=== PATIENT | female | born 1950 | race Caucasian/White ===

== ENCOUNTER 2019-01-06 05:55 | Inpatient (IN) ==
--- NOTE | 2018-12-12 14:59 | Anesthesiology Consultation ---
Date of Service December 12, 2018 Assessment & Plan (1) Encounter for pre-operative examination: PATIENT INITIALLY SCHEDULED WITH DR. FISHER -- SURGERY CANCELED DUE TO SURGEON CONFLICT. PATIENT SEEN AT [facility] 11/07; PHYSICAL EXAM FINDINGS REPORTED ARE FROM THAT VISIT. PCP Clearance 11/29/18 = " echocardiogram showed normal ejection fraction. Minimal aortic stenosis. No other significant findings. Patient is medically cleared for upcoming surgery." Chart Review Chart Review: Acceptable Risk for Surgery and Patient seen in Pre Admission Testing History Surgery Operation Date: 01/06/19 12:45 Proposed Procedures p Bilateral Total Knee Arthroplasty - Orestes Parra DO Height/Weight Height: 5 ft 5 in Weight: 83.915 kg Allergies Allergy/AdvReac Type Severity Reaction Status Date / Time Sulfa (Sulfonamide Allergy Rash Verified 12/11/18 14:27 Antibiotics) Medications Home Medications Medication Instructions Recorded Confirmed Last Taken acetaminophen [Tylenol] 325 mg PO Q6H PRN 11/05/18 12/11/18 Unknown levothyroxine [Synthroid] 100 mcg PO QAM 11/05/18 12/11/18 Unknown tramadol 50 mg PO Q6H PRN 12/11/18 12/11/18 Unknown Past Medical History Medical History Hx of pneumothorax D/T ACCIDENT 2017 Hypothyroidism Osteoarthritis Exercise / Class Metabolic Activity II 4-5 Yardwork/Stairs/Walk up hill (DENIES CP OR SOB WITH STAIRS) Past Family History Family History Brother Family history of diabetes mellitus Past Surgical History Surgical History History of D&C multiple History of appendectomy History of arthroscopy of left knee History of arthroscopy of right knee History of colonoscopy History of placement of chest tube History of surgery on wrist RT; hardware present History of tonsillectomy History of total abdominal hysterectomy and bilateral salpingo-oophorectomy Past Anesthesia History No Hx of Anesthesia Complications and No Family Hx of Anesthesia Complications Single episode of severe paranoia immediately post op, no subsequent issues. History of PONV No Hx of PONV and Hx of Motion Sickness (OCCASIONAL) Social History Smoking Status: Former smoker Do You Dip or Chew Tobacco: No Smoking End Date: 1992 Hx Alcohol Use: Yes Alcohol type: wine alcohol intake frequency: a few times a week Hx Substance Use: No substance use type: does not use Physical Exam Vital Signs Vital Signs BP: 144/69 P: 77bpm SPO2: 97% RA T: 98.4 F R: 18 ENMT Mouth: no dental restorations, no chipped teeth and no loose teeth Thyromental Distance: > or= 3.5 Finger Breadths (4) Mallampati Class: II Neck normal visual inspection; neck extension not limited Respiratory normal respiratory effort Auscultation: lungs clear to auscultation bilaterally Cardiovascular Rate/Rhythm: regular rate and regular rhythm Heart Sounds: + murmur (II-III/ JEFF, loudest at RSB) Vessels: + carotid bruit (likely radiation from murmur) Testing Laboratory Results 11/07/18 WBC: 6.12 H/H: 13.2/38.5 PLATELETS: 265 SODIUM: 140 POTASSIUM: 4.0 CHLORIDE: 108 CO2: 28 BUN: 21 CREATININE: 0.84 GLUCOSE: 132 A1C: 5.5% UA negative for bacteria Type and Screen: O negative, antibody negative PT: 10.3 INR: 1.0 PTT: 24.2 Electrocardiogram Date: 11/07/18 Findings: + NSR @ (70) NONSPECIFIC T WAVE ABNORMALITY. Chest X-Ray Date: 11/07/18 Findings: + NAD Echocardiogram Date: 11/27/18 EF: 60-65% Left ventricle is normal in size, wall thickness, wall motion and contractility. Right ventricle is normal in size and contractility. Degenerated trileaflet AV, trace AI. The mean gradient of 12 mmHg and the dimensionless index of 0.4 suggest mild . ADALI 1.7 cm. Normal RVSP. Small left to right shunt through PFO cannot be completely excluded.
--- NOTE | 2018-12-18 16:42 | History & Physical Report ---
Date of Service December 18, 2018 Date of Surgery: 01/06/19 Assessment & Plan (1) Bilateral primary osteoarthritis of knee: Risks and benefits of procedure discussed in detail today, patient would like to proceed with Bilateral total knee replacements at [facility] on 01-06-19. will obtain medical clearance from dr pearl prior to surgery as well as obtain PATs at [facility]. Will place on Xarelto x 1 month post op, f/u 2 weeks post op for routine post-operative care and x-ray, sooner if having any problems. will make arrangements for possible rehab placement at the time of discharge. At this point in time, has failed conservative measures and would like to proceed with surgical intervention. History of Present Illness Chief Complaint: bilateral knee pain Primary Care Provider: NO PCP Ms Guaman is a 68 year old female who is here for a follow up of bilateral knee, presents for pre-op evaluation prior to bilateral total knee replacements at [facility]. She presents with pain and instability on both sides. In addition, she presents with pain and crepitus and decreased ROM. She states that the symptoms have been chronic non-traumatic. The symptoms occur constantly with intermittent worsening. Currently the patient states that the symptoms are moderate-severe. The pain is described as aching and sharp. The patient is experiencing pain throughout the entire joint but greatest medial compartments both knees. She rates her current pain as 6/10. The symptoms are aggravated by daily activities, first steps while awake, walking and repetitive activities. Patient is taking Tramadol for pain. Patient has had cortisone injections in the past. she previously underwent Right knee arthroscopic partial medial meniscectomy and c hondroplasty medial femoral condyle and medial tibial plateau on 08/19/[address] Rodrigues. Allergies Allergy/AdvReac Type Severity Reaction Status Date / Time Sulfa (Sulfonamide Allergy Rash Verified 12/11/18 14:27 Antibiotics) Home Medications Home Medications Medication Instructions Recorded Confirmed Type acetaminophen [Tylenol] 325 mg PO Q6H PRN 11/05/18 12/11/18 History levothyroxine [Synthroid] 100 mcg PO QAM 11/05/18 12/11/18 History tramadol 50 mg PO Q6H PRN 12/11/18 12/11/18 History Past Med/Surg History Medical History Hx of pneumothorax D/T ACCIDENT 2017 Hypothyroidism Osteoarthritis Surgical History History of D&C multiple History of appendectomy History of arthroscopy of left knee History of arthroscopy of right knee History of colonoscopy History of placement of chest tube History of surgery on wrist RT; hardware present History of tonsillectomy History of total abdominal hysterectomy and bilateral salpingo-oophorectomy Family History Brother Family history of diabetes mellitus Social History Preferred Language: Macanese Communication Ability: Effective Beliefs That Will Affect Care: None Current Living Situation: Alone Feels Safe at Home: Yes Smoking Status: Former smoker Do You Dip or Chew Tobacco: No Smoking End Date: 1992 Second Hand Exposure: No Hx Alcohol Use: Yes Alcohol type: wine Hx Substance Use: No Review of Systems Review of Systems: All systems reviewed & are unremarkable except as noted in HPI & below Constitutional: no fever, no chills and no sweats Respiratory: no cough and no dyspnea Cardiovascular: no chest pain, no dyspnea and no orthopnea Gastrointestinal: no abdominal pain, no nausea and no vomiting Musculoskeletal: as per Subjective / HPI Physical Exam Physical Exam: Ht: 5ft 5 in Wt: 83.9kg BP: 140/82 Pulse: 82 Constitutional: WD/WN, vitals as above no acute distress Respiratory: normal respiratory effort, lungs clear to auscultation no respiratory distress and does not use accessory muscles Cardiovascular: Rate/Rhythm: regular rate and regular rhythm Heart Sounds: + murmur (Grade II/ JEFF) Gastrointestinal (Abdomen): normal bowel sounds, soft, nontender, no hepatosplenomegaly Musculoskeletal: Bilateral knee Physical exam Overall patient has varus alignment bilaterally, there is no atrophy or ecchymosis noted, no erythema. she does have +2 suprapatellar effusion in both of her knees, she has tenderness to both medial and lateral joint lines to both of her knees, negative patellar apprehension, she does have crepitation noted to both knees with active ROM. bilateral knees stable to valgus and varus stress, apryl negative, posterior drawer negative. Range of motion right knee 0/3/110, left knee 0115. her lower extremities are neurovascularly intact, calf soft and non tender, DP pulse +2 bilaterally. Results & Data Diagnostic Findings Bilateral Knee X-ray: bilateral knee series confirm advanced degenerative changes to bilateral knees, greatest medial compartments and patellofemoral joints, showing joint space narrowing, osteophyte formation and subchondral sclerosis. no acute bony pathology noted. overall varus alignment bilaterally, no loose bodies, no acute bony pathology.
[2019-01-06] MEDS ORDERED: FAMOTIDINE 20 MG TAB PO SCH (06:00)
[2019-01-06] MEDS ORDERED: LR 500ML BOLUS, THEN 15ML/HR IV SCH (06:00)
[2019-01-06] MEDS ORDERED: ROPIVACAINE 0.5% HCL/PF 150 MG, BUPIVACAINE 0.5% MPF 30 ML, EPINEPHrine 30MG/30ML (OR U... INFIL SCH (06:00)
[2019-01-06] MEDS ORDERED: TRANEXAMIC ACID 1,000 MG **IV Pre-op IV SCH (06:00)
[2019-01-06] MEDS ORDERED: ACETAMINOPHEN 500 MG TAB PO SCH (06:00)
[2019-01-06] MEDS ORDERED: dexAMETHasone 4 MG TAB PO SCH (06:00)
[2019-01-06] MEDS ORDERED: GABAPENTIN 300 MG PO SCH (06:00)
[2019-01-06] MEDS ORDERED: CLINDAMYCIN 600 MG/54 ML BAG IV SCH (06:00)
[2019-01-06] MEDS ORDERED: METOCLOPRAMIDE HCL 10 MG TABLET PO SCH (06:00)
[2019-01-06] MEDS ORDERED: TRANEXAMIC ACID 1,000 MG **IV Intra-op IV SCH (06:30)
[2019-01-06] MEDS ORDERED: BUPIVACAINE 0.5 % 5 MG/1 ML PF 10ML VIAL ONE (06:33)
[2019-01-06] MEDS ORDERED: ROPIVACAINE 0.5% 5 MG/ML 30 ML VIAL ONE (06:33)
--- NOTE | 2019-01-06 07:00 | History & Physical Bridge Note ---
Date of Service January 06, 2019 History & Physical Bridge Note I have examined the patient, reviewed the History & Physical and in the interval since the performance of the History & Physical I have noted the following changes of clinical significance: no changes noted
[2019-01-06] MEDS ORDERED: LIDOCAINE HCL 2% 2 ML VIAL/AMP(20MG/ML) INFIL ONE (07:01)
[2019-01-06] MEDS ORDERED: PROPOFOL IV EMULSION 10 MG/ML 20 ML VIAL IV ONE (07:01)
[2019-01-06] MEDS ORDERED: fentaNYL citrate 100 MCG/2 ML VIAL ONE (07:01)
[2019-01-06] MEDS ORDERED: MIDAZOLAM HCL 1 MG/ML 2ML VIAL ONE ×2 (07:01)
[2019-01-06] MEDS ORDERED: ORTHO JOINT ANESTHETIC ONE (07:06)
[2019-01-06] MEDS ORDERED: BACITRACIN INJ 50,000 UNIT VIAL ONE (07:06)
[2019-01-06] MEDS ORDERED: ONDANSETRON INJ 2 MG/ML 2 ML VIAL IV PRN ×2 (07:18→12:06)
[2019-01-06] MEDS ORDERED: ATROPINE SULFATE 0.1 MG/ML 10ML SYR IV PRN (07:18)
[2019-01-06] MEDS ORDERED: fentaNYL citrate 100 MCG/2 ML VIAL IV PRN (07:18)
[2019-01-06] MEDS ORDERED: ePHEDrine sulfate 50 MG/ML AMP IV PRN (07:18)
[2019-01-06] MEDS ORDERED: ONDANSETRON INJ 2 MG/ML 2 ML VIAL ONE ×2 (08:37→09:20)
--- NOTE | 2019-01-06 10:24 | Operative Report ---
Post Operative Report Pre & Post Diagnosis Operation Date: 01/06/19 08:20 Pre-Op Diagnosis: BILATERAL KNEE OSTEOARTHRITIS Post-Op Diagnosis: BILATERAL KNEE OSTEOARTHRITIS Procedure Operation Date: 01/06/19 08:20 Actual Procedures p Bilateral Total Knee Arthroplasty(Bilateral) utilizing [employer] journey to non-block total knee arthroplasty right size 4 femur 4 tibia 10 polyethylene 32 oval patella left size 5 femur 5 tibia 9 polyethylene 32 oval patella- Orestes Parra DO Surgeon Orestes Parra DO Signal Timer Barber SOLIS Estimated Blood Loss 10 Findings Consistent with Post-Op Diagnosis Patient presents with bilateral severe end-stage rectum compartment degenerative disease with varus alignment subchondral sclerosis cystic changes marginal osteophytes eburnated bone on bilateral knees patient did not respond to conservative management there are large subchondral cystic changes on the left knee with a 1 x 2 cm cyst Specimens Bone and cartilage Drains Medium bore Hemovac Complications none Disposition Accompanied Patient To Recovery: No Disposition: Recovery Room Indications Patient presents as a 68-year-old female being treated for severe end-stage tric ompartmental degenerative joint disease no response to conservative management failed attempted conservative management physical therapy anti-inflammatories relative rest activity medication corticosteroid injections the above intraoperative findings were noted with lab results large subchondral cystic changes osteophytes eburnated bone patient presents for right total knee arthroplasty Description of Procedure After proper prepping and draping of the bilateral lower extremities, an anterior midline incision was made over the region of the extensor extensor mechanism of the left knee. After meticulous hemostasis was obtained and maintained in subcutaneous tissues a medial parapatellar incision was made The patella was subluxed lateralward the medial lateral gutter were cleaned from any hypertrophic synovitis and scar tissue of the distal femoral block was placed and the distal femoral osteotomy cut was made subsequently the chamfers anterior and posterior osteotomy cuts were made utilizing the 4-in-1 block the tibia was subsequently subluxed anteriorward medial and ateral meniscal remnants were excised in their entirety remnants of the anterior and posterior cruciate ligaments were excised in their entirety excellent exposure of the proximal tibia was obtained the tibial osteotomy guide was placed on the proximal tibial osteotomy cut was made once again the knee was irrigated with copious amounts of sterile saline solution the patella was subsequently everted lateralward thickened scar tissue around the patella was removed the patella was subsequently cut utilizing a freehand technique and was drilled prepared for final preparation and placement of patella socially flexion-extension gaps were checked and the equal and symmetric trials were placed to the appropriate femoral and tibial trials with poly-spacer being placed for equal flexion and extension gaps and full range of motion including extension to 0 and flexion to 140 the trial components after having been taken to recovery range of motion was subsequently removed meticulous hemostasis was obtained and maintained subsequently a knee block injection of joint cocktail including ropivacaine 0.5% 150 mg. Bupivacaine 0.5% epinephrine 1-200,030 mL's toradol 30 mg dexamethasone 4 mg ketamine 10 mg clonidine 100 micrograms normal saline solution 30 mg was infiltrated into the soft tissues of the posterior knee medial lateral gutters and periosteal synovium special attention was paid to protect neurovascular structures at all times subsequently trial components having been removed the knee was irrigated with sterile saline solution. debris was removed the proximal tibia was subsequently prepared and was made ready for the placement of the tibial component tibial component was also cemented and tamped into position the femoral component was subsequently placed and cemented in the position the patellar component was subsequently cemented in position because hemostasis once again obtained and maintained wound having been thoroughly irrigated with debridement and debridement lavage was performed as well as a medial parapatellar incision closed with #1 Vicryl in interrupted fashion subcutaneous was closed with #2 Vicryl skin was closed with skin clips Next, an anterior midline incision was made over the region of the extensor extensor mechanism of the right knee. After meticulous hemostasis was obtained and maintained in subcutaneous tissues a medial parapatellar incision was made The patella was subluxed lateralward the medial lateral gutter were cleaned from any hypertrophic synovitis and scar tissue of the distal femoral block was placed and the distal femoral osteotomy cut was made subsequently the chamfers anterior and posterior osteotomy cuts were made utilizing the 4-in-1 block the tibia was subsequently subluxed anteriorward medial and ateral meniscal remnants were excised in their entirety remnants of the anterior and posterior cruciate ligaments were excised in their entirety excellent exposure of the proximal tibia was obtained the tibial osteotomy guide was placed on the proximal tibial osteotomy cut was made once again the knee was irrigated with copious amounts of sterile saline solution the patella was subsequently everted lateralward thickened scar tissue around the patella was removed the patella was sub sequently cut utilizing a freehand technique and was drilled prepared for final preparation and placement of patella socially flexion-extension gaps were checked and the equal and symmetric trials were placed to the appropriate femoral and tibial trials with poly-spacer being placed for equal flexion and extension gaps and full range of motion including extension to 0 and flexion to 140 the trial components after having been taken to recovery range of motion was subsequently removed meticulous hemostasis was obtained and maintained subsequently a knee block injection of joint cocktail including ropivacaine 0.5% 150 mg. Bupivacaine 0.5% epinephrine 1-200,030 mL's toradol 30 mg dexamethasone 4 mg ketamine 10 mg clonidine 100 micrograms normal saline solution 30 mg was infiltrated into the soft tissues of the posterior knee medial lateral gutters and periosteal synovium special attention was paid to protect neurovascular structures at all times subsequently trial components having been removed the knee was irrigated with sterile saline solution. debris was removed the proximal tibia was subsequently prepared and was made ready for the placement of the tibial component tibial component was also cemented and tamped into position the femoral component was subsequently placed and cemented in the position the patellar component was subsequently cemented in position because hemostasis once again obtained and maintained wound having been thoroughly irrigated with debridement and debridement lavage was performed as well as a medial parapatellar incision closed with #1 Vicryl in interrupted fashion subcutaneous was closed with #2 Vicryl skin was closed with skin clips.. PA-C was necessary for prepping and drapping as well as wound closure of deep fascia Sub cutaneous tissue and skin and was necessary for the case. A sterile compressive dressings were placed, patient was taken to recovery in stable condition of report dictated by Fidel I attest to the content of the Intraoperative Record and any orders documented therein. Any exceptions are noted below. I attest to the content of the Intraoperative Record and any orders documented therein. Any exceptions are noted below.
[2019-01-06] MEDS ORDERED: POVIDONE-IODINE OP SOLN 30 ML BTL OP SCH (10:30)
--- NOTE | 2019-01-06 11:23 | XRay Report ---
XR knee RT 2V routine CLINICAL HISTORY: 68 years-old Female presenting with Surgical Post Op. TECHNIQUE: Frontal and crosstable lateral views the right knee were obtained. COMPARISON: None. FINDINGS: Post surgical changes of total right knee arthroplasty with patellar resurfacing. Expected intra-martha cular and soft tissue emphysema. A surgical drain is in place. No periprosthetic lucency or fracture. No malalignment. IMPRESSION: Expected postsurgical appearance status post total right knee arthroplasty with patellar resurfacing. Electronically signed by: Rodger Wiley M.D. 01/06/2019 11:22 AM
--- NOTE | 2019-01-06 11:25 | XRay Report ---
XR knee LT 2V routine CLINICAL HISTORY: 68 years-old Female presenting with Surgical Post Op. TECHNIQUE: Frontal and crosstable lateral views of the left knee were obtained. COMPARISON: None. FINDINGS: Postsurgical changes of total left knee arthroplasty with patellar resurfacing. Cement is noted along the medial aspect of the medial femoral condyle. Expected intra-articular and soft tissue emphysema. No periprosthetic lucency or fracture. No malalignment. IMPRESSION: Expected postsurgical appearance status post total left knee arthroplasty with patellar resurfacing. Electronically signed by: Rodger Wiley M.D. 01/06/2019 11:24 AM
[2019-01-06] MEDS ORDERED: SODIUM CHLORIDE 0.9% 1000ML 1,000 ML IV SCH (12:06)
[2019-01-06] MEDS ORDERED: MAGNESIUM HYDROXIDE SUSP 30 ML UDC PO PRN (12:06)
[2019-01-06] MEDS ORDERED: METOCLOPRAMIDE HCL INJ 5 MG/ML 2 ML VIAL IV PRN (12:06)
[2019-01-06] MEDS ORDERED: NALOXONE HCL 0.4 MG/1 ML VIAL/CARP IV PRN (12:06)
[2019-01-06] MEDS ORDERED: BISACODYL 10 MG SUPP PR PRN (12:06)
--- NOTE | 2019-01-06 12:13 | Anesthesiology Progress Note ---
Date of Service January 06, 2019 Anesthesia Post Procedure Vital Signs Vital Signs: Temp Pulse Resp BP Pulse Ox 01/06/19 11:30 57 L 19 148/75 H 96 01/06/19 11:20 97.5 F L 63 17 151/87 H 97 01/06/19 11:10 66 22 154/77 H 100 01/06/19 11:02 96.8 F L 70 17 152/66 H 100 01/06/19 06:27 98.2 F 65 16 175/89 H 100 Pain Intensity Bilateral Knee: Pain Intensity: 1 Transfer of Care Handoff Completed per policy Notes Mental Status: alert / awake / arousable and participated in evaluation Patient Amnestic to Procedure: Yes Nausea / Vomiting: adequately controlled Pain: adequately controlled Airway Patency, RR, SpO2: stable & adequate BP & HR: stable & adequate Hydration State: stable & adequate Neuraxial Anesthesia: was administered and sensory block is resolving Anesthetic Complications: no major complications apparent and Pt Satisfied with anesthetic care
[2019-01-06] MEDS: KETOROLAC TROMETHAMINE 15 MG/ML VIAL IV SCH ×2 (13:57→19:42)
[2019-01-06] MEDS: ACETAMINOPHEN 500 MG TAB PO SCH ×2 (13:57→22:12)
[2019-01-06] MEDS: OXYCODONE HCL IR 5 MG TAB (IMMEDIATE RELEASE) PO PRN ×2 (15:33→20:15)
[2019-01-06] MEDS: FERROUS GLUCONATE 324 MG TAB PO SCH (17:46)
[2019-01-06] MEDS: CEFAZOLIN 2000MG 2,000 MG/15 ML SYR IV SCH (19:42)
[2019-01-06] MEDS: DOCUSATE SODIUM 100 MG CAP PO SCH (20:11)
[2019-01-06] MEDS: SENNA 8.6 MG TAB PO SCH (20:12)
[2019-01-06] MEDS: HYDROmorphone INJ 0.5 MG/0.5 ML SYR IV PRN (22:44)
[2019-01-07] MEDS: OXYCODONE HCL IR 5 MG TAB (IMMEDIATE RELEASE) PO PRN ×4 (00:03→21:43)
[2019-01-07] MEDS: KETOROLAC TROMETHAMINE 15 MG/ML VIAL IV SCH ×4 (01:07→19:31)
[2019-01-07] MEDS: HYDROmorphone INJ 0.5 MG/0.5 ML SYR IV PRN ×5 (03:06→23:26)
[2019-01-07] MEDS: CEFAZOLIN 2000MG 2,000 MG/15 ML SYR IV SCH (03:52)
[2019-01-07] MEDS: ACETAMINOPHEN 500 MG TAB PO SCH ×3 (05:55→22:11)
[2019-01-07] MEDS: LEVOTHYROXINE SODIUM 100 MCG TABLET PO SCH (05:55)
[2019-01-07 06:09] LABS: Hemoglobin 8.8 g/dL (12.0-16.0); Mean Corpuscular Hgb Conc 33.8 g/dL (32-36); Mean Corpuscular Volume 87.8 fL (80-100); Mean Platelet Volume 8.9 fL (7.4-10.4); Platelet Count 191 K/uL (130-400); RDW Coefficient of Variation 12.3 % (11.5-14.5); RDW Standard Deviation 39.6 fL (36.4-46.3); Red Blood Count 2.96 M/uL (4.2-5.4); White Blood Count 11.04 K/uL (4.8-10.8)
[2019-01-07 06:39] LABS: BUN Creatinine Ratio 24.6 (10-20); Calcium 8.3 mg/dl (8.5-10.1); Creatinine Clr Calc Pharmacy 76.5 ml/min; Est GFR (African American) 93.3; Est GFR (Non-African American) 80.5
--- NOTE | 2019-01-07 07:19 | Anesthesiology Progress Note ---
Date of Service January 07, 2019 Anesthesia Post Procedure Vital Signs Vital Signs: Temp Pulse Pulse Resp BP Pulse Ox 01/07/19 03:02 36.7 C 64 16 110/64 94 01/06/19 23:04 36.4 C L 70 18 108/60 94 01/06/19 20:28 36.7 C 77 18 125/65 96 01/06/19 15:26 36.6 C 61 16 169/83 H 100 01/06/19 13:55 36.4 C L 70 16 151/80 H 100 01/06/19 12:45 36.4 C L 69 18 154/69 H 100 01/06/19 12:19 36.4 C L 63 18 161/78 H 98 01/06/19 11:45 36.5 C 63 16 159/69 H 97 01/06/19 11:30 57 L 19 148/75 H 96 01/06/19 11:20 36.4 C L 63 17 151/87 H 97 01/06/19 11:10 66 22 154/77 H 100 01/06/19 11:02 36 C L 70 17 152/66 H 100 Pain Intensity Bilateral Knee: Pain Intensity: 6 Notes Mental Status: alert / awake / arousable and participated in evaluation Nausea / Vomiting: adequately controlled Pain: adequately controlled Airway Patency, RR, SpO2: stable & adequate BP & HR: stable & adequate Hydration State: stable & adequate Neuraxial Anesthesia: sensory block resolved Anesthetic Complications: Pt Satisfied with anesthetic care
[2019-01-07] MEDS ORDERED: COUGH DROP (SUGAR FREE) LOZ 24 LOZ/1 BOX BUCCAL ONE (07:36)
--- NOTE | 2019-01-07 07:51 | Orthopedic Progress Note ---
Date of Service January 07, 2019 Assessment & Plan (1) Bilateral primary osteoarthritis of knee: Postop day 1 status post bilateral TKA. PT/OT protocols. Weightbearing as tolerated. DVT prophylaxis with rivaroxaban, SCDs, KIRSTIE hose. Pain management with acetaminophen, oxycodone, hydromorphone, Toradol. We will recheck her pain control later today. Depending on pain control ,she may need an extended release narcotic. DC planning-patient is requesting to go to an inpatient rehab facility. She is thinking [facility] Pt will be seen by Dr Parra today. (2) Acute blood loss anemia: Anemia due to surgical loss. Will recheck H&H tomorrow. Currently asymptomatic. Subjective Postop day 1 status post bilateral total knee arthroplasty. Patient is currently sitting up in bed and is awake and alert. Burning pain in her knees which she had last night which at one point became very painful. She states that when she gets up, is when she has most of her pain. She is asking when her next pain medication is due. She denies any shortness of breath, chest pain, lightheadedness. She denies any calf tenderness. Physical Exam Physical Exam: Bilateral knee dressings are clean, dry, and intact. Calves are soft nontender. Neurovascular is intact. Toes are mobile. Hemovac drainage was 175 cc from the right knee and 75 cc from the left knee from the previous shift. Results & Data Vital Signs (Past 12 Hours) Vital Signs Temp Pulse Resp BP Pulse Ox 01/07/19 03:02 36.7 C 64 16 110/64 94 01/06/19 23:04 36.4 C L 70 18 108/60 94 01/06/19 20:28 36.7 C 77 18 125/65 96 Laboratory Results Laboratory Results WBC 11.04 K/uL (4.8-10.8) H 01/07/19 05:49 RBC 2.96 M/uL (4.2-5.4) L 01/07/19 05:49 Hgb 8.8 g/dL (12.0-16.0) L 01/07/19 05:49 Hct 26.0 % (37-47) L 01/07/19 05:49 MCV 87.8 fL (80-100) 01/07/19 05:49 MCH 29.7 pg (25-34) 01/07/19 05:49 MCHC 33.8 g/dL (32-36) 01/07/19 05:49 RDW Std Deviation 39.6 fL (36.4-46.3) 01/07/19 05:49 RDW Coeff of Kimber 12.3 % (11.5-14.5) 01/07/19 05:49 Plt Count 191 K/uL (130-400) 01/07/19 05:49 MPV 8.9 fL (7.4-10.4) 01/07/19 05:49 Sodium 140 mmol/L (136-145) 01/07/19 05:49 Potassium 4.0 mmol/L (3.5-5.1) 01/07/19 05:49 Chloride 106 mmol/L (98-107) 01/07/19 05:49 Carbon Dioxide 29 mmol/L (21-32) 01/07/19 05:49 Anion Gap 5.0 (3-11) 01/07/19 05:49 BUN 19 mg/dl (7-18) H 01/07/19 05:49 Creatinine 0.77 mg/dl (0.6-1.2) 01/07/19 05:49 Est Cr Clr Drug Dosing 76.5 ml/min 01/07/19 05:49 Est GFR ( Amer) 93.3 01/07/19 05:49 Est GFR (Non-Af Amer) 80.5 01/07/19 05:49 BUN/Creatinine Ratio 24.6 (10-20) H 01/07/19 05:49 Glucose 123 mg/dl (70-99) H 01/07/19 05:49 Calcium 8.3 mg/dl (8.5-10.1) L 01/07/19 05:49 Blood Type O Negative 01/06/19 06:16 Antibody Screen NEGATIVE 01/06/19 06:16
[2019-01-07] MEDS ORDERED: COUGH DROP (SUGAR FREE) LOZ 24 LOZ/1 BOX BUCCAL PRN (08:23)
[2019-01-07] MEDS: RIVAROXABAN 10 MG TABLET PO SCH (08:53)
[2019-01-07] MEDS: DOCUSATE SODIUM 100 MG CAP PO SCH ×2 (08:53→19:59)
[2019-01-07] MEDS: MULTIVITAMIN TAB PO SCH (08:53)
[2019-01-07] MEDS: FERROUS GLUCONATE 324 MG TAB PO SCH ×2 (08:53→16:19)
[2019-01-07] MEDS: MoRPHine SULFATE CR 15 MG TABCR PO SCH (16:18)
[2019-01-07] MEDS: SENNA 8.6 MG TAB PO SCH (19:58)
[2019-01-08] MEDS: KETOROLAC TROMETHAMINE 15 MG/ML VIAL IV SCH ×2 (03:20→08:20)
[2019-01-08] MEDS: HYDROmorphone INJ 0.5 MG/0.5 ML SYR IV PRN (03:20)
[2019-01-08 05:52] LABS: Basophils # (auto) 0.02 K/uL (0-0.2); Basophils % (auto) 0.3 %; Eosinophils # (auto) 0.11 K/uL (0-0.5); Eosinophils % (auto) 1.8 %; Hematocrit (blood only) 22.1 % (37-47); Hemoglobin 7.5 g/dL (12.0-16.0); Immature Granulocytes # (auto) 0.02 K/uL (0.00-0.02); Immature Granulocytes % (auto) 0.3 %; Lymphocytes # (auto) 1.46 K/uL (1.2-3.4); Lymphocytes % (auto) 24.4 %; Mean Corpuscular Hgb Conc 33.9 g/dL (32-36); Mean Corpuscular Volume 89.1 fL (80-100); Monocytes # (auto) 0.67 K/uL (0.11-0.59); Monocytes % (auto) 11.2 %; Platelet Count 170 K/uL (130-400); RDW Coefficient of Variation 12.5 % (11.5-14.5); RDW Standard Deviation 40.7 fL (36.4-46.3); Red Blood Count 2.48 M/uL (4.2-5.4); White Blood Count 5.98 K/uL (4.8-10.8)
[2019-01-08] MEDS: ACETAMINOPHEN 500 MG TAB PO SCH ×3 (06:11→21:58)
[2019-01-08] MEDS: LEVOTHYROXINE SODIUM 100 MCG TABLET PO SCH (06:12)
[2019-01-08] MEDS: MoRPHine SULFATE CR 15 MG TABCR PO SCH ×2 (06:12→18:28)
[2019-01-08 06:14] LABS: RBC Morphology Unremarkable
[2019-01-08 06:26] LABS: BUN Creatinine Ratio 27.6 (10-20); Creatinine Clr Calc Pharmacy 85.4 ml/min; Est GFR (African American) 105.1; Est GFR (Non-African American) 90.7
--- NOTE | 2019-01-08 07:07 | Orthopedic Progress Note ---
Date of Service January 08, 2019 Assessment & Plan (1) Bilateral primary osteoarthritis of knee: Postop day 2 status post bilateral TKA. PT/OT protocols. Weightbearing as tolerated. DVT prophylaxis with rivaroxaban, SCDs, KIRSTIE hose. Pain management with acetaminophen, oxycodone, hydromorphone, Toradol. DC planning-patient is requesting to go to an inpatient rehab facility. She is thinking [facility] versus [facility] (2) Acute blood loss anemia: Anemia due to surgical loss. Will recheck H&H tomorrow. Currently asymptomatic. Subjective Postop day 2 status post bilateral total knee arthroplasty. Patient is currently sitting up in bed and is awake and alert. denies CP/SOB Denies Fever/chills She denies any calf tenderness. Physical Exam Physical Exam: Vital Signs Temp Pulse Pulse Pulse Resp BP Pulse Ox 01/07/19 23:20 36.7 C 78 14 123/63 95 01/07/19 15:54 36.6 C 73 18 125/68 98 01/07/19 12:30 36.5 C 82 20 120/64 99 01/07/19 08:21 36.4 C L 70 20 116/62 97 Intake and Output 01/07/19 01/08/19 01/08/19 22:59 06:59 14:59 Intake Total 690 / 1510 150 / 1510 Output Total 400 / 980 125 / 980 Balance 290 / 530 25 / 530 Intake: Oral 690 / 1510 150 / 1510 Output: Urine 200 / 400 Drain Output 200 / 580 125 / 580 Left Knee Hemo vac 75 / 245 50 / 245 Right Knee Hem ovac 125 / 335 75 / 335 Other: # Unmeasured Voi ds 1 Constitutional: WD/WN, vitals as above no acute distress Musculoskeletal: bilateral knees: NVDI, calf SNT, negative gaurav sign. DP palpable, able to wiggle toes/ankle movement without difficulty. prinea dressing clean dry and intact. expected post-operative bruising noted. Psychiatric: A+Ox3, euthymic affect Results & Data Vital Signs (Past 12 Hours) Vital Signs Temp Pulse Resp BP Pulse Ox 01/07/19 23:20 36.7 C 78 14 123/63 95
[2019-01-08] MEDS: RIVAROXABAN 10 MG TABLET PO SCH (08:20)
[2019-01-08] MEDS: DOCUSATE SODIUM 100 MG CAP PO SCH ×2 (08:20→20:32)
[2019-01-08] MEDS: FERROUS GLUCONATE 324 MG TAB PO SCH ×2 (08:21→18:28)
[2019-01-08] MEDS: MULTIVITAMIN TAB PO SCH (08:21)
[2019-01-08] MEDS: OXYCODONE HCL IR 5 MG TAB (IMMEDIATE RELEASE) PO PRN ×4 (08:24→20:33)
[2019-01-08 15:12] LABS: Hematocrit (blood only) 23.4 % (37-47); Hemoglobin 7.8 g/dL (12.0-16.0)
[2019-01-08] MEDS: SENNA 8.6 MG TAB PO SCH (20:32)
[2019-01-09] MEDS: OXYCODONE HCL IR 5 MG TAB (IMMEDIATE RELEASE) PO PRN ×3 (00:56→12:12)
[2019-01-09 06:08] LABS: Basophils # (auto) 0.03 K/uL (0-0.2); Basophils % (auto) 0.5 %; Eosinophils % (auto) 1.5 %; Hematocrit (blood only) 23.4 % (37-47); Hemoglobin 7.9 g/dL (12.0-16.0); Immature Granulocytes # (auto) 0.02 K/uL (0.00-0.02); Immature Granulocytes % (auto) 0.3 %; Lymphocytes # (auto) 1.56 K/uL (1.2-3.4); Mean Corpuscular Hgb Conc 33.8 g/dL (32-36); Mean Platelet Volume 8.6 fL (7.4-10.4); Monocytes # (auto) 0.54 K/uL (0.11-0.59); Monocytes % (auto) 8.3 %; Neutrophils # (auto) 4.24 K/uL (1.4-6.5); Neutrophils % (auto) 65.4 %; Platelet Count 205 K/uL (130-400); RDW Coefficient of Variation 12.5 % (11.5-14.5); RDW Standard Deviation 40.5 fL (36.4-46.3); Red Blood Count 2.63 M/uL (4.2-5.4); White Blood Count 6.49 K/uL (4.8-10.8)
[2019-01-09] MEDS: ACETAMINOPHEN 500 MG TAB PO SCH ×2 (06:12→13:54)
[2019-01-09] MEDS: LEVOTHYROXINE SODIUM 100 MCG TABLET PO SCH (06:12)
[2019-01-09] MEDS: MoRPHine SULFATE CR 15 MG TABCR PO SCH (06:12)
[2019-01-09 06:44] LABS: RBC Morphology Unremarkable
[2019-01-09] MEDS: MULTIVITAMIN TAB PO SCH (08:07)
[2019-01-09] MEDS: DOCUSATE SODIUM 100 MG CAP PO SCH (08:07)
[2019-01-09] MEDS: FERROUS GLUCONATE 324 MG TAB PO SCH (08:07)
[2019-01-09] MEDS: RIVAROXABAN 10 MG TABLET PO SCH (08:07)
--- NOTE | 2019-01-09 08:16 | Orthopedic Progress Note ---
Date of Service January 09, 2019 Assessment & Plan (1) Bilateral primary osteoarthritis of knee: Postop day 3 status post bilateral TKA. PT/OT protocols. Weightbearing as tolerated. DVT prophylaxis with rivaroxaban, SCDs, KIRSTIE hose. Pain management with acetaminophen, oxycodone, hydromorphone, Toradol. DC planning-patient is requesting to go to an inpatient rehab facility. Accepted to [facility] facility. Discussed pain medications that she is on; scheduled vs prn. She understands needing to ask for the PRN meds. Will add a note to her instructions for dc to wake her at night to assess pain control. CM waiting for pending authorization. (2) Acute blood loss anemia: Anemia due to surgical loss. Will recheck H&H tomorrow. Currently asymptomatic. Hgb as noted above at 7.9. Pt continues to remain asymptomatic. VSS. PMH essentially benign (Hypothyroid/osteoarthritis) Hold off on transfusion at this time. Subjective POD 3 s/p Bilateral TKA Acute Blood Loss Anemia Pt awake and alert this AM. States she had a rough night due to pain control. States that she sleeps longer than the 4hours her meds covers and by the time she wakes up to call the nurses, her pain rating is very high. She is wanting to be woken up q4h at night to make sure she's getting her pain meds regularly. Currently she denies SOB, CP, LH. She feels tired which she attributes to being up half the night due to pain issues. Denies feeling unusually cold. Having concerns about going to [facility] and getting her pain meds. No other complaints. Physical Exam Physical Exam: Incisions C/D/I. Prineo intact bilaterally. No overt erythema. Swelling consistent with surgery. Calves are soft, NT. NV intact. Toes mobile. Results & Data Vital Signs (Past 12 Hours) Vital Signs Temp Pulse Pulse Resp BP Pulse Ox 01/09/19 07:53 36.6 C 71 16 123/71 96 01/08/19 23:12 36.6 C 79 14 124/68 95 Laboratory Results Laboratory Results WBC 6.49 K/uL (4.8-10.8) 01/09/19 05:49 RBC 2.63 M/uL (4.2-5.4) L 01/09/19 05:49 Hgb 7.9 g/dL (12.0-16.0) L 01/09/19 05:49 Hct 23.4 % (37-47) L 01/09/19 05:49 MCV 89.0 fL (80-100) 01/09/19 05:49 MCH 30.0 pg (25-34) 01/09/19 05:49 MCHC 33.8 g/dL (32-36) 01/09/19 05:49 RDW Std Deviation 40.5 fL (36.4-46.3) 01/09/19 05:49 RDW Coeff of Kimber 12.5 % (11.5-14.5) 01/09/19 05:49 Plt Count 205 K/uL (130-400) 01/09/19 05:49 MPV 8.6 fL (7.4-10.4) 01/09/19 05:49 Immature Gran % (Auto) 0.3 % 01/09/19 05:49 Neut % (Auto) 65.4 % 01/09/19 05:49 Lymph % (Auto) 24.0 % 01/09/19 05:49 Logan % (Auto) 8.3 % 01/09/19 05:49 Eos % (Auto) 1.5 % 01/09/19 05:49 Baso % (Auto) 0.5 % 01/09/19 05:49 Immature Gran # (Auto) 0.02 K/uL (0.00-0.02) 01/09/19 05:49 Neut # (Auto) 4.24 K/uL (1.4-6.5) 01/09/19 05:49 Lymph # (Auto) 1.56 K/uL (1.2-3.4) 01/09/19 05:49 Logan # (Auto) 0.54 K/uL (0.11-0.59) 01/09/19 05:49 Eos # (Auto) 0.10 K/uL (0-0.5) 01/09/19 05:49 Baso # (Auto) 0.03 K/uL (0-0.2) 01/09/19 05:49 RBC Morphology Unremarkable 01/09/19 05:49 Sodium 140 mmol/L (136-145) 01/08/19 05:16 Potassium 4.0 mmol/L (3.5-5.1) 01/08/19 05:16 Chloride 108 mmol/L (98-107) H 01/08/19 05:16 Carbon Dioxide 31 mmol/L (21-32) 01/08/19 05:16 Anion Gap 1.0 (3-11) L 01/08/19 05:16 BUN 19 mg/dl (7-18) H 01/08/19 05:16 Creatinine 0.69 mg/dl (0.6-1.2) 01/08/19 05:16 Est Cr Clr Drug Dosing 85.4 ml/min 01/08/19 05:16 Est GFR ( Amer) 105.1 01/08/19 05:16 Est GFR (Non-Af Amer) 90.7 01/08/19 05:16 BUN/Creatinine Ratio 27.6 (10-20) H 01/08/19 05:16 Glucose 92 mg/dl (70-99) 01/08/19 05:16 Calcium 8.0 mg/dl (8.5-10.1) L 01/08/19 05:16 Blood Type O Negative 01/06/19 06:16 Antibody Screen NEGATIVE 01/06/19 06:16
--- NOTE | 2019-01-18 22:45 | Discharge Summary ---
DATE OF ADMISSION: 01/06/2019 DATE OF DISCHARGE: 01/09/2019 DISCHARGE DIAGNOSIS: Degenerative joint disease, bilateral knees. SECONDARY DIAGNOSES: History of pneumothorax in 2017 due to accident, hypothyroidism, osteoarthritis. CONSULTS: None. COMPLICATIONS: None. PROCEDURES: Bilateral total knee arthroplasty performed by Dr. Parra on 01/06/2019. BRIEF HISTORY: As dictated in history and physical. HOSPITAL SUMMARY: The patient was admitted on the above-noted date and had the above-noted surgery performed, which she tolerated well. On the first postoperative day, she was sitting up in bed and is awake and alert. She had burning pain in her knees which she had last night which at one point became very painful. She states that when she gets up is when she was having most of her pain. She was asking when her next pain medication was due. She denied shortness of breath, chest pain or lightheadedness and denies calf tenderness. Bilateral knee dressings were clean, dry and intact. Calves were soft, nontender. Neurovascularly intact. Toes were mobile. Hemovac drainage was 175 mL from the right knee and 75 mL from the left knee. Vital signs were stable. She was afebrile and hemoglobin was 8.8. She was started on PT and OT protocols. DVT prophylaxis with rivaroxaban, SCDs and KIRSTIE hose. Pain management with acetaminophen, oxycodone, hydromorphone and Toradol. Plans are to recheck her pain control later that day. Depending on her pain control, she may need an extended release narcotic. Patient was requesting to go to an inpatient rehab facility which case management had been consulted to start working on. By her second postoperative day, patient was currently sitting up in bed and is awake and alert. Denied chest pain, shortness of breath. Denies fever, chills. Denied any calf tenderness. Vital signs were stable. She was afebrile. Bilateral knees showed neurovascularly intact. Calves were soft, nontender, negative Laine signs bilaterally. Dorsalis pedis pulses are palpable. Toes were mobile without difficulty. Prineo dressings were clean, dry and intact. Expected postoperative bruising noted. She was continued on her PT and OT protocols, weightbearing as tolerated. DVT prophylaxis as noted and continued on pain management. Recheck of her hemoglobin showed to be 7.5. She was currently asymptomatic and plans were to recheck and follow. By her third postoperative day, she was awake and alert that morning. She states that she had a rough night due to pain control, stated that she was sleeping longer than the 4 hours her meds covered. By the time she wakened up, called the nurses her pain rating was very high. She was wanting to be woken up every 4 hours at night to make sure she is getting her pain meds regularly. She was denying shortness of breath, chest pain or lightheadedness. She felt tired, which she attributes to being up half an eye due to pain issues. Denies feeling unusually cold. She was having concerns about going to [facility] and getting her pain medications regularly. She had no other complaints. Incisions were clean, dry and intact. Prineo intact bilaterally. No overt erythema. Swelling was consistent with surgery. Calves were soft, nontender. Neurovascularly intact. Toes mobile. Vital signs were stable. She was afebrile. Repeat hemoglobin was 7.9 and she was remaining asymptomatic. She was continued on her PT and OT protocols. DVT prophylaxis and pain management. The patient was requesting to go to an inpatient rehab facility of which she was accepted at the [facility]. We discussed her pain medications that she was on scheduled versus p.r.n. She understands that she needed to ask for the p.r.n. meds. She did have MS Contin added to her pain regimen which was helping. She ambulated 50 feet x2 in PT. She was thusly transferred to [facility] inpatient rehab facility for further physical therapy and care on 01/09/2019. For further review, please see chart. LABORATORY AND X-RAY DATA: As per chart. DISCHARGE INSTRUCTIONS: The patient was discharged to [facility] in [place] on 01/09/2019. DIET: Regular. ACTIVITY: Right and left weightbearing as tolerated with walker on the lower extremities. Follow special orders, please wakeup patient at night to assess pain control, recheck H&H on 01/10/2019, continue to follow TKA instruction sheets and special care instructions and follow up with Dr. Parra in 2 weeks. The patient to call for appointment if one has made for you. DISCHARGE MEDICATIONS: Acetaminophen 1000 mg p.o. q.8 hours, MS Contin 15 mg p.o. q.12 hours, oxycodone 5-10 mg p.o. q.4 hours p.r.n., Xarelto 10 mg p.o. daily, resume levothyroxine 100 mcg p.o. q.a.m. and stop taking previous acetaminophen and tramadol tablets.
== END 2019-01-09 14:50 | DRG 462 ==
LOC: ASU 05:55 → 3E 11:55